=== PATIENT | female | born 1985 | race Caucasian/White ===

== ENCOUNTER → 2019-06-07 | Outpatient (CLI) | payer OTHER ==
[~2019-06-07] MED LIST: ALPRAZOLAM; ASPIRIN EC81 M1 PO; AZO95 MG PO; CRANBERRY400 MG; KEFLEX500 MG PO; PERCOCET 7.5-31 EACH PO; ZOFRAN4 MG PO
== END ==
LOC: M.RAD 09:20
DX: N63.20 Unspecified lump in the left breast, unspecified quadrant (principal)

== ENCOUNTER 2019-11-16 17:59 | Emergency (ER) | payer OTHER, MEDICAID ==
[~2019-11-16] VITALS: Ht 162.6 cm; Wt 61.2 kg
[2019-11-16] MEDS ORDERED: WELLBUTRIN XL300 MG PO (18:28)
[2019-11-16] MEDS ORDERED: TRAMADOL 50 MG50 MG PO (18:28)
[2019-11-16] MEDS ORDERED: TRAZODONE 150150 M1 PO (18:29)
[2019-11-16] MEDS ORDERED: ADVAIR 100-501 EACH INH (18:31)
[2019-11-16] MEDS ORDERED: PROAIR HFA8.5 GM INH (18:31)
[2019-11-16] MEDS ORDERED: AMITRIPTYLINE H25 M3 PO (18:31)
[2019-11-16] MEDS ORDERED: NEURONTIN300 MG PO (18:32)
[2019-11-16] MEDS ORDERED: HYDROXYZINE PAM25 M1 PO (18:33)
[2019-11-16] MEDS ORDERED: NORCO 5-325 TA1 EAC1 PO (18:33)
[2019-11-16] MEDS ORDERED: PENICILLIN VK250 MG PO (18:37)
[2019-11-16 19:01] VITALS: BP 97/70
== END 2019-11-16 19:02 | disposition home or self-care (01) ==
LOC: M.ERS 17:59
DX: K08.89 Other specified disorders of teeth and supporting structures (principal); L53.9 Erythematous condition, unspecified; M32.9 Systemic lupus erythematosus, unspecified; Z86.14 Personal history of Methicillin resistant Staphylococcus aureus infection; Z90.710 Acquired absence of both cervix and uterus

== ENCOUNTER 2020-04-14 21:51 | Emergency (ER) | payer OTHER, MEDICAID ==
[~2020-04-14] VITALS: Ht 165.1 cm; Wt 49.4 kg
[~2020-04-14 21:51] MED LIST changes: +ADVAIR 100-501 EACH INH; +AMITRIPTYLINE H25 M3 PO; +HYDROXYZINE PAM25 M1 PO; +NEURONTIN300 MG PO; +NORCO 5-325 TA1 EAC1 PO; +PENICILLIN VK250 MG PO; +PROAIR HFA8.5 GM INH; +TRAMADOL 50 MG50 MG PO; +TRAZODONE 150150 M1 PO; +WELLBUTRIN XL300 MG PO
[2020-04-14] MEDS ORDERED: CLONAZEPAM 0.50.5 M1 PO (22:04)
[2020-04-14 22:12] LABS: URINE BLOOD TRACE (Negative); URINE CLARITY CLEAR; URINE COLOR YELLOW; URINE GLUCOSE-RANDOM NEGATIVE (Negative); URINE LEUKOCYTES-REFLEX TRACE (Negative); URINE NITRITE-REFLEX NEGATIVE (Negative); URINE PROTEIN 1+ (Negative); URINE SPECIFIC GRAVITY >= 1.030 (1.005-1.030); URINE UROBILINOGEN 0.2 E.U./dl (0.2-1.0)
[2020-04-14 22:13] LABS: ICTOTEST (BILI CONFIRMATORY) Negative (Negative); URINE BILIRUBIN 1+ (Negative); URINE KETONES 3+ (Negative)
[2020-04-14 22:22] LABS: ABSOLUTE EOSINOPHILS 0.2 thou/uL (0.0-0.7); ABSOLUTE LYMPHOCYTES 2.6 thou/uL (0.8-5.3); ABSOLUTE MONOCYTES 0.7 thou/uL (0.0-1.2); ABSOLUTE NEUTROPHILS 8.8 thou/uL (1.6-8.1); BASOPHILS 0.3 %; EOSINOPHILS 1.4 %; HEMATOCRIT 40.5 % (37.0-47.0); HEMOGLOBIN 13.7 gm/dL (12.0-15.0); LYMPHOCYTES 20.8 %; MCH 29.8 pg (26.0-34.0); MCHC 33.9 g/dL (28.0-37.0); MCV 87.9 fL (80.0-100.0); MPV 7.7 fl. (7.2-11.1); NUCLEATED RBCS 0 /100WBC; PLATELET COUNT* 351 thou/uL (150-400); POLYS 71.5 %; RBC 4.61 mil/uL (4.20-5.00); RDW-CV 13.5 % (10.5-14.5); WBC 12.3 thou/uL (4.0-11.0)
[2020-04-14 22:22] LABS: BACTERIA-REFLEX None Seen /HPF (None Seen); CASTS None Seen /LPF (None Seen); CRYSTALS None Seen /LPF (None Seen); SQUAMOUS >10 Many /LPF (0-3); URINE RBC None Seen /HPF (0-2); URINE WBC-REFLEX 0-5 Rare /HPF (0-5)
[2020-04-14 22:31] LABS: CALCIUM 9.7 mg/dL (8.5-10.1); POTASSIUM 3.5 mmol/L (3.5-5.1)
[2020-04-14 22:35] LABS: ALBUMIN 4.7 g/dL (3.4-5.0); TOTAL BILIRUBIN 0.5 mg/dL (<0.1-1.0); TOTAL PROTEIN 9.1 g/dL (6.4-8.2)
[2020-04-14 22:43] LABS: AMP/METHAMP Negative (Negative); BARBITURATES Negative (Negative); BENZODIAZEPINES Negative (Negative); COCAINE Negative (Negative); METHADONE Negative (Negative); OPIATES Negative (Negative); PCP Negative (Negative); THC Negative (Negative)
[2020-04-15 00:28] VITALS: BP 112/70
== END 2020-04-15 00:28 | disposition home or self-care (01) ==
LOC: M.ERS 21:51
PROVIDERS: Personal Emergency Response Attendant
DX: E86.0 Dehydration (principal); R11.2 Nausea with vomiting, unspecified; F41.9 Anxiety disorder, unspecified; F31.9 Bipolar disorder, unspecified; Z86.14 Personal history of Methicillin resistant Staphylococcus aureus infection; Z90.710 Acquired absence of both cervix and uterus; Z91.040 Latex allergy status; Z88.1 Allergy status to other antibiotic agents; Z88.8 Allergy status to other drugs, medicaments and biological substances